=== PATIENT | male | born 2005 | race Caucasian/White ===

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

== ENCOUNTER 2025-02-07 14:01 | Emergency (ER) | payer MEDICAID | END 2025-02-07 14:40 | disposition home or self-care (01) | LOC: JP.ED 14:01 | DX: Z76.0 Encounter for issue of repeat prescription (principal); Z79.899 Other long term (current) drug therapy | CPT/HCPCS: 99281; 99283 ==